=== PATIENT | male | born 1945 | race Caucasian/White ===

== ENCOUNTER 2017-09-29 18:23 | Emergency (ER) | payer BC, MEDICARE ==
[~2017-09-29] VITALS: Ht 180.3 cm; Wt 71.2 kg
[~2017-09-29 18:23] MED LIST: AMOX250; ASPI325; ASPI81CH PO; Aspir 8181 MG PO; CHLO25B PO; CIPR500 PO; DILT120 PO; DONE10 PO; ESCI20 PO; Flecainide Acet50 MG PO; HYDR1TAB94 PO; IBUP400 PO; KETO10 PO; LEVSOD25 PO; NAMZARIC 28 MG1 EACH PO; ONDA8 PO; OXYACE5T PO; PROM25 PO; SENN187 PO; TAMS.4ER PO; TOLT4 PO; Tambocor100 MG; WARF5 PO; XARELTO10 MG PO; Zofran Odt4 MG PO; [UNRECOGNIZED DRUG - OTHER]
[2017-09-29 19:05] LABS: BASOPHILS ABSOLUTE AUTO 0.02 K/mm3 (0.00-0.23); BASOPHILS PERCENT AUTO 0 % (0-2); EOSINOPHILS ABSOLUTE AUTO 0.01 K/mm3 (0.00-0.68); EOSINOPHILS PERCENT AUTO 0 % (0-6); Hematocrit 47.7 % (37.0-53.0); Hemoglobin 15.9 g/dL (13.5-17.5); IMMATURE GRAN ABSOLUTE AUTO 0.03 K/mm3 (0.00-0.10); IMMATURE GRAN PERCENT AUTO 0 % (0-1); LYMPHOCYTES ABSOLUTE AUTO 1.35 K/mm3 (0.84-5.20); LYMPHOCYTES PERCENT AUTO 14 % (21-46); MONOCYTES ABSOLUTE AUTO 1.06 K/mm3 (0.16-1.47); MONOCYTES PERCENT AUTO 11 % (4-13); Mean Corpuscular HGB 29.7 pg (26.0-34.0); Mean Corpuscular HGB Conc 33.3 g/dL (31.5-36.5); Mean Corpuscular Volume 89 fL (80-100); Mean Platelet Volume 10.1 fL (9.1-12.4); NEUTROPHILS PERCENT AUTO 74 % (41-73); Platelet Count 212 K/mm3 (150-400); RDW Coefficient Variation 13.2 % (11.7-14.2); RDW Standard Deviation 42.8 fL (35.1-46.3); Red Blood Cell Count 5.36 M/mm3 (4.30-5.90); White Blood Cell Count 9.57 K/mm3 (4.00-11.30)
[2017-09-29 19:26] LABS: Alanine Aminotransfer (ALT/SGP 25 U/L (12-78); Albumin, Blood 3.9 g/dL (3.4-5.0); Alk Phos 99 U/L (50-136); Anion Gap 9 mmol/L (6-16); Aspartate Aminotrans (AST/SGOT 25 U/L (12-37); Bilirubin, Total 0.6 mg/dL (0.1-1.0); Blood Urea Nitrogen 18 mg/dL (8-24); Bun/Creatinine Ratio 17.3 (12.0-20.0); CO2, Blood 26 mmol/L (21-32); Calcium, Blood 9.5 mg/dL (8.5-10.1); Chloride, Blood 102 mmol/L (98-108); Creatinine, Blood 1.04 mg/dL (0.60-1.20); Globulin, Blood 4.1 g/dL (2.2-4.0); Glomerular Filtration Rate >60 (60-); Glucose, Blood 118 mg/dL (70-99); Potassium, Blood 3.8 mmol/L (3.5-5.5); Sodium, Blood 137 mmol/L (136-145)
[2017-09-29 20:40] LABS: Influenza A Negative (NEGATIVE); Influenza B Negative (NEGATIVE)
[2017-09-29 21:05] LABS: Source, Urine Clean Catch
[2017-09-29 21:08] LABS: Bilirubin, Urine Neg (Neg); Blood, Urine 2+ (Neg); Glucose Qualitative, Urine Neg (Neg); Ketones, Urine Neg (Neg); Leukocyte Esterase, Urine Neg (Neg); Nitrite, Urine Neg (Neg); Protein, Urine 2+ (Neg); Urobilinogen, Urine NORM (Normal)
[2017-09-29] MEDS ORDERED: OLAN5 PO (21:10)
[2017-09-29] MEDS ORDERED: LORA1 PO (21:11)
[2017-09-29 21:21] LABS: Appearance, CSF Clear (Clear); Color, CSF No Color (No Color)
[2017-09-29 21:22] LABS: RBC Count, CSF 0 /mm3 (0-0); WBC Count, CSF 0 /mm3 (0-5)
[2017-09-29 21:31] LABS: Appearance, CSF Clear (Clear); Color, CSF No Color (No Color); RBC Count, CSF 6 /mm3 (0-0)
[2017-09-29 21:32] LABS: Appearance, Urine Clear (Clear); Color, Urine Yellow (P-Yellow)
[2017-09-29 21:32] LABS: WBC Count, CSF 0 /mm3 (0-5)
[2017-09-29 21:33] LABS: Amorphous Light (0-Heavy); Bacteria Mod /hpf; Red Blood Cells, Urine 0-2 /hpf (0-2); Squamous Epithelial Cells Not Seen /hpf (Few); White Blood Cells, Urine 0-2 /hpf (0-5)
[2017-09-29 21:56] LABS: Glucose, CSF 71 mg/dL (40-70)
[2017-09-29 22:13] LABS: Lymphocytes, CSF 64 % (40-80); Monocytes, CSF 36 % (15-45)
[2017-09-29] MEDS ORDERED: Tylenol325 MG PO (22:20)
[2017-09-29] MEDS ORDERED: Amoxicillin500 MG PO (22:20)
[2018-04-23] MEDS ORDERED: HALO2 PO (16:36)
== END 2017-09-29 22:32 | disposition home or self-care (01) ==
LOC: ER 18:23
PROVIDERS: Emergency Medicine
DX: N39.0 Urinary tract infection, site not specified (principal); R50.9 Fever, unspecified; F03.90 Unspecified dementia, unspecified severity, without behavioral disturbance, psychotic disturbance, mood disturbance, and anxiety; M54.2 Cervicalgia; Z79.899 Other long term (current) drug therapy; I48.91 Unspecified atrial fibrillation; G30.9 Alzheimer's disease, unspecified
CPT/HCPCS: 36415; 62270; 70450; 71045; 80053; 81001; 82945; 83605; 84157; 85025; 87040; 87070; 87086; 87205; 87804; 89051; 96365; 96366; 96375; 99284; J0696; J1170; J1885; J2405; J7030

== ENCOUNTER → 2019-03-16 | Outpatient (CLI) | payer OTHER, MEDICARE ==
[~2019-03-16] MED LIST changes: +Amoxicillin500 MG PO; +HALO2 PO; +LORA1 PO; +OLAN5 PO; +Tylenol325 MG PO
== END | disposition home or self-care (01) ==
LOC: LAB SHORT 16:13 → LAB EV 16:13
DX: N02.9 Recurrent and persistent hematuria with unspecified morphologic changes (principal); R31.0 Gross hematuria
CPT/HCPCS: 87077; 87086; 87186